=== PATIENT | male | born 1960 | race Caucasian/White ===

== ENCOUNTER 2023-01-06 10:26 | Outpatient (AMB) | payer OTHER, SELFPAY ==
--- NOTE | 2023-01-06 10:27 | A.OFFVIS_ITS ---
Intake Vital Signs 01/06/23 10:31 Height 5 ft 8 in Weight 198 lb 13.711 oz BMI 30.2 BP 134/66 Blood Pressure Location Lt brachial Position Sitting Pulse 72 Intake Visit Reasons: screening colonoscopy, dysphagia Intake Note: Patient presents to in office visit today as a new patient for dysphagia and colonoscopy screening. CC: Patient reports he chokes with certain foods and it feels like he can't get them down. Pt reports it happens with dryer consistency foods like salmon and meat. Onset approximately over a year ago. He reports his older sister was having the same issue and after her gallbladder was removed she got better. Reports occasional acid reflux, heartburn. Last colonoscopy about 10 years ago. Last colonoscopy done at [facility]. Pt with colon cancer hx (father). Allergies No Known Allergies Allergy (Verified 01/06/23 10:40) HPI screening colonoscopy, dysphagia HPI Details 62 year old? male here today for pre col onoscopy screening.?? Patient denies any gastrointestinal symptoms in the past or at present.? Patient reports occasional dysphagia with solid food. Patient reports that he has to drink water or other liquids in order to swallow better. Patient's father was diagnosed with colorectal cancer in his 40s, at age 49. Denies history of difficulty with sedation or anesthesia in the past.? Negative for history of sleep apnea.? Denies any history of cardiac, renal, pulmonary, or hepatic disease.?? No history of infectious? diseases like hepatitis A, B, C, HIV or tuberculosis.? Patient reports MRSA infection in his left ankle after surgery 10 years ago. Patient is not on any anticoagulation therapy. PFSH Surgical History Hx of shoulder surgery History of ankle surgery H/O colonoscopy Family History Father Colon cancer Social History Alcohol intake: current Alcohol intake frequency: holidays/special occasions only Patient Tobacco Use Status: Former Tobacco user Quit Date: 10 years ago Tobacco use type: Cigarette Review of Systems Const Denies weight gain and Denies weight loss ENT Reports no additional complaints, Reports dysphagia and Denies odynophagia Card Reports no additional complaints Resp Reports no additional complaints GI Denies abdominal pain, Denies belching, Denies melena, Denies bloating, Denies change in bowel habits, Reports dysphagia, Denies excessive flatus, Denies dyspepsia, Denies heartburn, Denies diarrhea, Denies loose stools, Denies nausea, Denies odynophagia and Denies vomiting Reports no additional complaints Musc Reports no additional complaints Neuro Reports no additional complaints Psych Reports no additional complaints Endo Reports no additional complaints Physical Exam Vital Signs: Last Vital Signs Pulse 72 01/06/23 10:31 BP 134/66 01/06/23 10:31 BMI result Body Mass Index 30.2 Const General: healthy appearing, no acute distress and well developed Nutritional Appearance: obese Orientation/consciousness: patient oriented x3 HEENT Head: Yes normal to inspection, Yes normocephalic and Yes atraumatic Face and sinus: Yes normal facial exam Mouth: Normal oral and palatal mucosa present Throat: Yes posterior oropharynx normal, Yes tonsils normal and Yes uvula midline Eyes General: appearance normal, both eyes and all related structures Neck Neck: Yes normal visual inspection, Yes full ROM and Yes trachea midline Thyroid: Thyroid normal Resp Effort & Inspection: normal respiratory effort, able to speak in complete sentences, no tracheal deviation and symmetric chest movement Auscultation: clear to auscultation bilaterally Cardio Rate: regular rate Heart sounds: S1 normal heart sound present and S2 normal heart sound present GI Inspection: Yes normal to inspection, No distended and Yes obesity Palpation (GI): Soft to palpation, not firm, nontender and No hepatosplenomegaly present Auscultation: normal bowel sounds General: Yes no CVA tenderness Back/Spine/Pelvis Back: no CVA tenderness Skin General skin exam: elasticity normal, turgor normal and dry skin Neuro General: patient oriented x3 Psych Appearance: grossly normal Mental Status: mental status grossly normal Speech and movement: Normal speech and movement present Assessment & Plan Assessment & Plan (1) Dysphagia: Code(s): R13.10 - Dysphagia, unspecified Qualifiers: Dysphagia type: pharyngoesophageal phase Qualified Code(s): R13.14 - Dysphagia, pharyngoesophageal phase Plan: Patient reports occasional dysphagia. Denies any dyspepsia. Patient was encouraged to eat smaller meals chew his food well. Patient will be sent is for upper endoscopy. Patient denies dyspepsia or acid reflux. Denies any postprandial epigastric discomfort. (2) Screen for colon cancer: Code(s): Z12.11 - Encounter for screening for malignant neoplasm of colon Plan: Patient denies any cardiac or respiratory symptoms.? Patient reports occasional dysphagia with solid food. Denies any issues with anesthesia in the past.? Denies any history of sleep apnea.? No history infectious diseases in the past or present.? Not on any anticoagulation therapy.? Family history of colorectal cancer.? Patient denies melena, hematochezia, unintentional weight loss or ribbon like stools.? Discussed at length the pre-procedure,? prep, diet & medications as well as what to expect prior, during and after the procedure.?? Stressed the importance of good bowel prep. ?Recommended the use of Vaseline or Calmoseptine OTC & baby wipes with bowel movements to promote comfort.? ?Patient is taking Ozempic. His does is every Friday afternoon. Please schedule patient for procedure on or Friday to avoid aspiration. Patient verbalizes understanding and agrees to plan of care.? He was given the opportunity to ask questions and all questions answered.? We will see him after the procedure.? Medications: New polyethylene glycol 3350 (Miralax) As directed by gastroenterology department at [facility] 238 grams PO ONCE 238 grams 0RF Z12.11 - Encounter for screening for malignant neoplasm of colon bisacodyl (Dulcolax (bisacodyl)) take 2 tabs at noon the day before your colonoscopy 10 mg (2 x 5 mg) PO ONCE 1 day 2 tabs 0RF Z12.11 - Encounter for screening for malignant neoplasm of colon Coding Level of Care Code New Pt Level 4 (94005) Diagnoses Pharyngoesophageal dysphagia R13.14 Dysphagia type: pharyngoesophageal phase Screen for colon cancer Z12.11 Time Spent (min) 45 Comment 30 minutes spent with patient and additional 15 minutes spent reviewing his records
[2023-01-06 10:31] VITALS: BP 134/66; PULSE 72; BMI 30.2
== END 2023-01-06 11:20 | disposition home or self-care (01) ==
PROVIDERS: PCP Hospitalist; Visit Provider Nurse Practitioner Family
DX: R13.14 Dysphagia, pharyngoesophageal phase (principal); Z12.11 Encounter for screening for malignant neoplasm of colon
CPT/HCPCS: 99204

== ENCOUNTER → 2023-01-06 10:26 | Outpatient (BNVA) | payer OTHER, SELFPAY | PROVIDERS: PCP Hospitalist; Visit Provider Nurse Practitioner Family ==

== ENCOUNTER 2023-01-16 12:36 | Day surgery (SDC) | payer OTHER, SELFPAY ==
[2023-01-14 11:33] VITALS: BMI 30.1
--- NOTE | 2023-01-16 13:02 | HO.ANESPROP2 ---
[facility] Past Medical History Medical History Obesity Enlarged lymph nodes Hematuria Hyperlipidemia Pain in shoulder Male erectile disorder HTN (hypertension) Family History Family History Father Colon cancer Family history of problems with anesthesia: No Surgical History Surgical History Hx of shoulder surgery History of ankle surgery H/O colonoscopy History of Problems with Anesthesia: No Social History Social History Alcohol intake: current Alcohol intake frequency: holidays/special occasions only Patient Tobacco Use Status: Former Tobacco user Quit Date: 10 years ago Tobacco use type: Cigarette Are you DNR?: No Advance Directives: No Advance Directives Information Provided: Yes Nutrition Risks: No Nutritional Risk Meds Allergies Allergy/AdvReac Type Severity Reaction Status Date / Time No Known Allergies Allergy Verified 01/16/23 12:51 Active Medications: Current Medications Lactated Ringer's (Lr) 1,000 mls @ 50 mls/hr IVCONT .Q20H [facility] Home Medications Medication Instructions Recorded Confirmed Last Taken Type atorvastatin 40 mg tablet 40 mg PO DAILY 01/06/23 01/16/23 Unknown History ezetimibe 10 mg tablet 10 mg PO DAILY 01/06/23 01/16/23 Unknown History hydrochlorothiazide 12.5 mg tablet 12.5 mg PO QAM 01/06/23 01/16/23 Unknown History insulin glargine 100 unit/mL (3 unit subcut 01/06/23 Unknown History mL) subcutaneous pen (Basaglar KwikPen U-100 Insulin) metformin 1,000 mg tablet 1,000 mg PO BID 01/06/23 01/16/23 Unknown History semaglutide 0.25 mg or 0.5 mg (2 0.2 mg subcut QWEEK 01/06/23 01/16/23 Unknown History mg/3 mL) subcutaneous pen injector (Ozempic) Exam Exam Date and Time: January 16, 2023 1302 Height,Weight and Vital Signs: Height 5 ft 8 in Weight 89.811 kg Airway Mallampati Class: II TM Dist: >3cm Neck ROM: Full Assessment and Plan Assessment Anesthesia Assessment: Anesthesia Plan Discussed and Chart Reviewed Final Anesthetic Review Family History of Problems with Anesthesia: No History of Problems with Anesthesia: No NPO: Yes ASA Class: III Final Preanesthetic Review: No Changes in Pt Med Stat, Meds/Allgs Chart Reviewed, Consent Obtained/Reviewed and Anes Risks/Benef Reviewed Patient Risk: Intermediate Procedure Risk: Low Anesthetic Plan Anesthetic Plan: MAC: Disposition: Standard PACU
[2023-01-16 13:07] VITALS: BP 130/73; PULSE 86; RESP 18; TEMP 36.6; O2SAT 97
--- NOTE | 2023-01-16 13:11 | MHC.SHP ---
Pre-Procedural Eval Section A Date of Service: 01/16/23 Section B Chief Complaint: Epigastric pain, Family history of malignant neopl Details of Present Illness: father with crc Relevant Family History (Specify if Yes): Yes Relevant Social History: None Present Medications: see Short Stay Collaborative assessment Medical History: Significant History History of Previous Operations: Relevant previous surgery/procedure and date(s) (Hx of shoulder surgery History of ankle surgery H/O colonoscopy) Allergies: Allergies Allergy/AdvReac Type Severity Reaction Status Date / Time No Known Allergies Allergy Verified 01/16/23 12:51 Review of Systems Sugical H&P ROS: Negative: Constitution, Cardiovascular, Respiratory, Neurological, Psychiatric, Hem-Onc, Allergic/Immunologic, Gastrointestinal, Genitourinary, Musculoskeletal, Integumentary, Endocrine and Eyes/Ears/Nose/Throat Exam Surgical H&P Exam: Normal: HEENT, Normal: Heart, Normal: Lungs, Normal: Extremities, Normal: Abdomen, Normal: Skin and Normal: Neurological Plan Diagnosis/Plan: Unchanged I have reviewed the history and physical and performed a pertinent physical examination on my patient. No changes have occurred unless specified. Time Spent With Patient Time: Total time managing care of this patient today ____ minutes.
--- NOTE | 2023-01-16 14:01 | W.PM.OPN ---
Operative Note Operative Note Date of Service: 01/16/23 Narrative: Operative Information Procedure Description: EGD, Colonoscopy Indication: choking and FH of cRC, screening Anesthesia: MAC FLEXIBLE TRANSORAL UPPER GASTROINTESTINAL ENDOSCOPY AND COLONOSCOPY PROCEDURE NOTE UPPER ENDOSCOPY Consent: Indications for the procedure and potential complications of bleeding, perforation, reaction to medications and missed diagnosis were discussed with the patient and informed consent was obtained. Instrument: Olympus GIF H 190 J mid size upper endoscope Monitoring: Vital signs and clinical assessment, continuous EKG monitoring, Pulse oximetry, Carbon Dioxide monitoring and blood pressure monitoring were done throughout the procedure. Procedure: The patient was placed in the left lateral decubitis position and pre-procedure medications were administered and a bite block was placed. The endoscope was inserted into the mouth and advanced under direct vision to the third part of duodenum. A careful inspection was made as the upper endoscope was withdrawn including a retroflexed examination of the proximal stomach; Findings and interventions are described below. Findings: Larynx:normal Esophagus: GE junction at 42 cm, diaphragm hiatus at 42 cm, congested mucosa with edema and streaky erosions, LA grade B, bx taken and balloon dilation to 20 mm at LES with tear noted as well as UES, no tear noted. Stomach: Patchy erythema. Biopsies were obtained. Grade 2 flap valve on retroflexed examination of the cardia. Duodenum: Severe bulbar duodenitis, bx taken Intervention: Biopsies as noted above, balloon dilation COLONOSCOPY Instrument: Olympus variable stiffness pediatric scope 190L Colonoscopy Monitoring: Vital signs and clinical assessment, continuous EKG monitoring, Pulse oximetry, Carbon Dioxide monitoring and blood pressure monitoring were done throughout the procedure. Colon withdrawal time was 10 minutes. Procedure: The patient was placed in the left lateral decubitis position and pre-procedure medications were administered. After a digital rectal examination of the ano-rectum, the video colonoscope was inserted into the rectum and advanced through the colon to the cecum/TI. The colonoscope was slowly withdrawn in a retrograde panoramic fashion and the colon mucosa was carefully examined including a retroflexed view of the rectum. Findings and interventions are described below. Procedure Difficulty:moderate Findings: Terminal Ileum-normal Cecum:normal Ascending Colon: x 2 sessile polyps 8-10 mm removed with cold snare, lipoma noted at hepatic flexure area Transverse Colon -normal Descending Colon: x 1 sessile polyp 5-7 mm removed with cold forceps Sigmoid Colon:mild diverticulosis Rectum: Retroflexion with small internal hemorrhoids, grade I Anorectum - normal Colon preparation: [place] Bowel Preparation Scale Right colon; 1-2 Transverse colon: 1-2 Left colon; 1 (0 = Unprepared colon segment with mucosa not seen due to solid stool that cannot be cleared. 1 = Portion of mucosa of the colon segment seen, but other areas of the colon segment not well seen due to staining, residual stool and/or opaque liquid. 2 = Minor amount of residual staining, small fragments of stool and/or opaque liquid, but mucosa of colon segment seen well. 3 = Entire mucosa of colon segment seen well with no residual staining, small fragments of stool or opaque liquid) Impression and Post Procedure Diagnosis: Endoscopy Findings: erosive esophagitis gastritis duodenitis esophageal stricture Colonoscopy Findings: polyps internal hemorrhoids diverticular disease Plan: Await Pathology results Repeat Colonoscopy in 6-12 months or earlier if clinically indicated and review prep High fiber diet leaflet avoid straining at stool, epsom salts and sitz bath, anusol supps or cream if H pylori pos then treat trial of PPI Above findings were reviewed with the patient and relevant handouts were provided if indicated.
[2023-01-16 14:12] VITALS: BP 105/61; PULSE 88; RESP 16; TEMP 36.8; O2SAT 95
[2023-01-16 14:27] VITALS: BP 126/78; PULSE 74; RESP 20; TEMP 36.6; O2SAT 97
== END 2023-01-16 15:21 | disposition home or self-care (01) ==
PROVIDERS: PCP Hospitalist; Visit Provider Internal Medicine Gastroenterology
PROC: (CPT 43239; principal; 2023-01-16 13:50)
DX: K22.2 Esophageal obstruction (principal); K22.10 Ulcer of esophagus without bleeding; K22.4 Dyskinesia of esophagus; K26.7 Chronic duodenal ulcer without hemorrhage or perforation; Z12.11 Encounter for screening for malignant neoplasm of colon; D17.5 Benign lipomatous neoplasm of intra-abdominal organs; K57.30 Diverticulosis of large intestine without perforation or abscess without bleeding; K64.0 First degree hemorrhoids; Z80.9 Family history of malignant neoplasm, unspecified; I10 Essential (primary) hypertension; E78.5 Hyperlipidemia, unspecified; Z87.891 Personal history of nicotine dependence; Z79.899 Other long term (current) drug therapy
CPT/HCPCS: 43239; 43249; 45385; 45380; 82947; 88305; 88342

== ENCOUNTER → 2023-01-16 12:36 | Outpatient (BNV) | payer OTHER, SELFPAY | PROVIDERS: PCP Hospitalist; Visit Provider Internal Medicine Gastroenterology | DX: Z12.11 Encounter for screening for malignant neoplasm of colon (principal); Z86.010 Personal history of colon polyps; R13.14 Dysphagia, pharyngoesophageal phase; K29.90 Gastroduodenitis, unspecified, without bleeding; K20.90 Esophagitis, unspecified without bleeding; K22.2 Esophageal obstruction; D12.2 Benign neoplasm of ascending colon; D12.4 Benign neoplasm of descending colon; K57.30 Diverticulosis of large intestine without perforation or abscess without bleeding; D17.5 Benign lipomatous neoplasm of intra-abdominal organs | CPT/HCPCS: 43249; 45380; 45385 ==

== ENCOUNTER 2023-01-28 12:01 | Outpatient (AMB) | payer OTHER, SELFPAY ==
--- NOTE | 2023-01-28 12:07 | A.OFFVIS_ITS ---
Intake Vital Signs 01/28/23 12:08 Height 5 ft 8 in Weight 197 lb BMI 30.0 BP 137/75 Blood Pressure Location Lt brachial Position Sitting Pulse 76 Intake Visit Reasons: s/p egd/colon Daniel Intake Note: Patient follow up for EGD/Colonoscopy results. Patient denies any GI issues. Director Of Cardiology Required: No Accompanied by: Self / Same As Patient Allergies No Known Allergies Allergy (Verified 01/28/23 12:06) HPI s/p egd/colon Daniel HPI Details LAST VISIT Dysphagia Patient reports occasional dysphagia. Denies any dyspepsia. Patient was encouraged to eat smaller meals chew his food well. Patient will be sent is for upper endoscopy. Patient denies dyspepsia or acid reflux. Denies any postprandial epigastric discomfort. Screen for colon cancer Patient denies any cardiac or respiratory symptoms.? Patient reports occasional dysphagia with solid food. Denies any issues with anesthesia in the past.? Denies any history of sleep apnea.? No history infectious diseases in the past or present.? Not on any anticoagulation therapy.? Family history of colorectal cancer.? Patient denies melena, hematochezia, unintentional weight loss or ribbon like stools.? Discussed at length the pre-procedure,? prep, diet & medications as well as what to expect prior, during and after the procedure.?? Stressed the importance of good bowel prep. ?Recommended the use of Vaseline or Calmoseptine OTC & baby wipes with bowel movements to promote comfort.? ?Patient is taking Ozempic. His does is every Friday afternoon. Please schedule patient for procedure on or Friday to avoid aspiration. Patient verbalizes understanding and agrees to plan of care.? He was given the opportunity to ask questions and all questions answered.? We will see him after the procedure. UPPER ENDOSCOPY AND COLONOSCOPY Findings: Larynx:normal Esophagus: GE junction at 42 cm, diaphragm hiatus at 42 cm, congested mucosa with edema and streaky erosions, LA grade B, bx taken and balloon dilation to 20 mm at LES with tear noted as well as UES, no tear noted. Stomach: Patchy erythema. Biopsies were obtained. Grade 2 flap valve on retroflexed examination of the cardia. Duodenum: Severe bulbar duodenitis, bx taken Intervention: Biopsies as noted above, balloon dilation Findings: Terminal Ileum-normal Cecum:normal Ascending Colon: x 2 sessile polyps 8-10 mm removed with cold snare, lipoma noted at hepatic flexure area Transverse Colon -normal Descending Colon: x 1 sessile polyp 5-7 mm removed with cold forceps Sigmoid Colon:mild diverticulosis Rectum: Retroflexion with small internal hemorrhoids, grade I Anorectum - normal Colon preparation: [place] Bowel Preparation Scale Right colon; 1-2 Transverse colon: 1-2 Left colon; 1 (0 = Unprepared colon segment with mucos a not seen due to solid stool that cannot be cleared. 1 = Portion of mucosa of the colon segme nt seen, but other areas of the colon segment not well seen due to staining, residual stool and/or opaque liquid. 2 = Minor amount of residual staining, s mall fragments of stool and/or opaque liquid, but mucosa of colon segment seen well. 3 = Entire mucosa of colon segment seen well with no residual staining, small fragments of stool or opaque liquid) Impression and Post Procedure Diagnosis: Endoscopy Findings: erosive esophagitis gastritis duodenitis esophageal stricture Colonoscopy Findings: polyps internal hemorrhoids diverticular disease Plan: Await Pathology results Repeat Colonoscopy in 6-12 months or earlier if clinically indicated and review prep High fiber diet leaflet avoid straining at stool, epsom salts and sitz bath, anusol supps or cream if H pylori pos then treat trial of PPI PATHOLOGY RESULTS: Diagnosis A. Duodenum, biopsy: Chronic inactive duodenitis. B. Stomach, biopsy: Oxyntic mucosa with mild chronic inactive inflammation; no Helicobacter organisms seen. C. GE junction, biopsy: - Cardiac-type mucosa with moderate director news mary inactive inflammation; no intestinal metaplasia seen. - Squamous mucosa within normal limits. D. Esophagus, distal, biopsy: Squamous mucosa within normal limits; no inflammation seen. E. Esophagus, proximal, biopsy: Squamous mucosa within normal limits; no inflammation seen. F. Colon, ascending, polypectomy: Fragments of tubular adenoma; negative for high-grade dysplasia or carcinoma. G. Colon, descending, polypectomy: Hyperplastic mucosal polyp TODAY'S VISIT: Patient is here today for follow-up and to discuss upper endoscopy and colonoscopy results. Patient denies any ill effects from the prep, anesthesia or procedure itself. Patient reports to be feeling well. Denies dyspepsia, dysphagia or odynophagia. Patient had dilation of esophageal stricture. Upper endoscopy and colonoscopy you results discussed with patient. Upper endoscopy s howed esophagitis, gastritis and duodenitis. Colonoscopy had polyps, however patient had suboptimal prep and will need to repeat colonoscopy in 6 months. Patient is taking Nexium every day. Reports that he has been feeling better. Denies melena, hematochezia, unintentional weight loss or ribbon like stools. Patient reports to be moving his bowels without any issues. Patient reports that he drank all the prep at ones. States that he was confused about his instructions. [facility] Medical History Obesity Enlarged lymph nodes Hematuria Hyperlipidemia Pain in shoulder Male erectile disorder HTN (hypertension) Surgical History Hx of shoulder surgery History of ankle surgery H/O colonoscopy Family History Father Colon cancer Social History Alcohol intake: current Alcohol intake frequency: holidays/special occasions only Patient Tobacco Use Status: Former Tobacco user Quit Date: 10 years ago Tobacco use type: Cigarette Review of Systems Const Denies weight gain and Denies weight loss ENT Reports no additional complaints, Denies dysphagia and Denies odynophagia Card Reports no additional complaints Resp Reports no additional complaints GI Denies abdominal pain, Denies belching, Denies melena, Denies bloating, Denies change in bowel habits, Denies constipation, Denies dysphagia, Denies excessive flatus, Denies dyspepsia, Denies heartburn, Denies diarrhea, Denies loose stools, Denies nausea, Denies odynophagia and Denies vomiting Reports no additional complaints Musc Reports no additional complaints Neuro Reports no additional complaints Psych Reports no additional complaints Endo Reports no additional complaints Physical Exam Vital Signs: Last Vital Signs Pulse 76 01/28/23 12:08 BP 137/75 01/28/23 12:08 BMI result Body Mass Index 30.0 Const General: healthy appearing, no acute distress and well developed Nutritional Appearance: obese Orientation/consciousness: patient oriented x3 HEENT Head: Yes normal to inspection, Yes normocephalic and Yes atraumatic Face and sinus: Yes normal facial exam Mouth: Normal oral and palatal mucosa present Throat: Yes posterior oropharynx normal, Yes tonsils normal and Yes uvula midline Eyes General: appearance normal, both eyes and all related structures Neck Neck: Yes normal visual inspection, Yes full ROM and Yes trachea midline Thyroid: Thyroid normal Resp Effort & Inspection: normal respiratory effort, able to speak in complete sentences, no tracheal deviation and symmetric chest movement Auscultation: clear to auscultation bilaterally Cardio Rate: regular rate Heart sounds: S1 normal heart sound present and S2 normal heart sound present GI Inspection: Yes normal to inspection, No distended and Yes obesity Palpation (GI): Soft to palpation, not firm, nontender and No hepatosplenomegaly present Auscultation: normal bowel sounds General: Yes no CVA tenderness Back/Spine/Pelvis Back: no CVA tenderness Skin General skin exam: elasticity normal, turgor normal and dry skin Neuro General: patient oriented x3 Psych Appearance: grossly normal Mental Status: mental status grossly normal Assessment & Plan Assessment & Plan (1) Dysphagia: Code(s): R13.10 - Dysphagia, unspecified Qualifiers: Dysphagia type: pharyngoesophageal phase Qualified Code(s): R13.14 - Dysphagia, pharyngoesophageal phase (2) Tubular adenoma: Code(s): D36.9 - Benign neoplasm, unspecified site (3) Status post colonoscopy: Code(s): Z98.890 - Other specified postprocedural states Plan As mentioned above patient was found to have a tubular adenoma, however due to suboptimal prep he will need to return for colorectal screening again in 6-12 months. Patient denies any melena, hematochezia, unintentional weight loss or ribbon like stools. Upper endoscopy showed gastritis, duodenitis and eso phagitis. Patient no longer has dysphagia. Patient will continue Nexium. Discussed with patient avoiding dietary triggers in late night snacking. Staying upright for minimal 3 hours after meals discussed with patient. I will see him in 6 months, sooner on as needed basis. Patient is agreeable to this plan and verbalizes understanding of instructions. He was given the opportunity to ask questions and all questions answered. Thank you for allowing me participate in his care Coding Level of Care Code Est Pt Level 3 (00095) Diagnoses Pharyngoesophageal dysphagia R13.14 Dysphagia type: pharyngoesophageal phase Tubular adenoma D36.9 Status post colonoscopy Z98.890 Time Spent (min) 30 Comment 20 minutes spent with patient and additional 10 minutes spent reviewing his records
[2023-01-28 12:08] VITALS: BP 137/75; PULSE 76
== END 2023-01-28 13:33 | disposition home or self-care (01) ==
PROVIDERS: PCP Hospitalist; Visit Provider Nurse Practitioner Family
DX: R13.14 Dysphagia, pharyngoesophageal phase (principal); D36.9 Benign neoplasm, unspecified site; Z98.890 Other specified postprocedural states
CPT/HCPCS: 99213

== ENCOUNTER → 2023-01-28 12:01 | Outpatient (BNVA) | payer OTHER, SELFPAY | PROVIDERS: PCP Hospitalist; Visit Provider Nurse Practitioner Family ==